=== PATIENT | female | born 1960 | race Caucasian/White ===

== ENCOUNTER 2021-01-17 14:06 | Observation (INO) | payer OTHER ==
[2021-01-17] MEDS ORDERED: ACETAMINOPHEN 325 MG TABLET (FP) PO ONE (15:09)
[2021-01-17] MEDS ORDERED: ACETAMINOPHEN 325 MG TABLET (FP) ONE (15:40)
[2021-01-17 15:57] LABS: BASO % 2.1 % (0-2.0); EOS % 3.4 % (0-4.5); HEMATOCRIT 39.3 % (32.4-45.2); HEMOGLOBIN 12.4 GM/dL (10.7-15.3); MCH 27.3 pg (25.7-33.7); MCHC 31.5 g/dl (32.0-36.0); MEAN CELL VOLUME 86.6 fl (80-96); MEAN PLT VOLUME 9.4 fl (7.5-11.1); MONO % 7.3 % (3.8-10.2); NEUT % 46.2 % (42.8-82.8); PLATELET COUNT 306 10^3/uL (134-434); RBC 4.54 M/mm3 (3.60-5.2); RDW 14.3 % (11.6-15.6); WHITE BLOOD COUNT 5.4 K/mm3 (4.0-10.0)
[2021-01-17 16:19] LABS: CHLORIDE 110 mmol/L (98-107); SODIUM 145 mmol/L (136-145)
[2021-01-17 16:21] LABS: CALCIUM 8.8 mg/dL (8.5-10.1)
[2021-01-17 16:22] LABS: ALBUMIN 3.6 g/dl (3.4-5.0); ANION GAP 11 MMOL/L (8-16); BLOOD UREA NITROGEN 11.6 mg/dL (7-18); CO2 24 mmol/L (21-32); GLUCOSE,RANDOM 84 mg/dL (74-106)
[2021-01-17 16:25] LABS: CREATININE 0.6 mg/dL (0.55-1.3); SGOT/AST 32 U/L (15-37); SGPT/ALT 27 U/L (13-61)
[2021-01-17 16:26] LABS: BILIRUBIN,TOTAL 0.4 mg/dL (0.2-1)
[2021-01-17 16:27] LABS: TOT PROT 6.8 g/dl (6.4-8.2)
[2021-01-17 16:28] LABS: ALK PHOS 84 U/L (45-117)
[2021-01-17 23:00] LABS: COCAINE, UR NEGATIVE (NEGATIVE); METHADONE, UR NEGATIVE (NEGATIVE); PHENCYCLIDINE,URINE NEGATIVE (NEGATIVE); URINE BARBITURATES NEGATIVE (NEGATIVE); URINE BENZODIAZEPINES NEGATIVE (NEGATIVE)
[2021-01-17 23:01] LABS: URINE AMPHETAMINES NEGATIVE (NEGATIVE)
[2021-01-17 23:03] LABS: URINE APPEARANCE CLEAR; URINE COLOR YELLOW
[2021-01-17 23:04] LABS: URINE BILIRUBIN NEGATIVE (NEGATIVE); URINE GLUCOSE (UA) NEGATIVE (NEGATIVE); URINE KETONE NEGATIVE (NEGATIVE); URINE LEUK ESTERASE NEGATIVE (NEGATIVE); URINE NITRITE NEGATIVE (NEGATIVE); URINE PROTEIN NEGATIVE (NEGATIVE); URINE UROBILINOGEN 0.2 mg/dL (0.2-1.0)
[2021-01-17 23:05] LABS: OPIATES, URI NEGATIVE (NEGATIVE)
[2021-01-18 00:33] VITALS: BMI 26.3
[2021-01-18] MEDS ORDERED: MELATONIN 5 MG TABLETS PO ONE (01:18)
[2021-01-18] MEDS ORDERED: ACETAMINOPHEN 1000 MG/100 ML VIAL (NON FORMULARY) IVPB ONE (01:19)
[2021-01-18 07:29] LABS: BASO % 1.1 % (0-2.0); EOS % 4.5 % (0-4.5); HEMATOCRIT 37.5 % (32.4-45.2); HEMOGLOBIN 12.1 GM/dL (10.7-15.3); MCH 27.9 pg (25.7-33.7); MCHC 32.3 g/dl (32.0-36.0); MEAN CELL VOLUME 86.1 fl (80-96); MEAN PLT VOLUME 9.2 fl (7.5-11.1); NEUT % 44.4 % (42.8-82.8); PLATELET COUNT 287 10^3/uL (134-434); RBC 4.35 M/mm3 (3.60-5.2); RDW 14.2 % (11.6-15.6); WHITE BLOOD COUNT 6.5 K/mm3 (4.0-10.0)
[2021-01-18 07:48] LABS: BLOOD UREA NITROGEN 17.5 mg/dL (7-18)
[2021-01-18 07:51] LABS: CALCIUM 9.2 mg/dL (8.5-10.1); MAGNESIUM 2.3 mg/dL (1.8-2.4)
[2021-01-18 08:22] LABS: CREATININE 0.8 mg/dL (0.55-1.3)
[2021-01-18 09:52] VITALS: BP 97/56; PULSE 68; TEMP 98.1
[2021-01-18] MEDS ORDERED: ENOXAPARIN NA (PORCINE) 40 MG/0.4 ML DISP.SYRIN SQ SCH (10:00)
== END 2021-01-18 18:09 | disposition home or self-care (01) ==
LOC: JER 14:06 → JERBED 18:19 → UNDOADMOB 18:19 → OBSVTOIN 22:04 → INTOOBSV 22:04 → J4W 23:42 → JERBED 23:42 → J4W 01-18 08:24 → JERBED 01-18 08:24
PROVIDERS: ATTEND Student in an Organized Health Care Education/Training Program
PROC: 3E033NZ Introduction of Analgesics, Hypnotics, Sedatives into Peripheral Vein, Percutaneous Approach (ICD-10-PCS; principal; 2021-01-18)
DX: R55 Syncope and collapse (principal); I95.9 Hypotension, unspecified; I65.29 Occlusion and stenosis of unspecified carotid artery; F41.9 Anxiety disorder, unspecified; Z90.49 Acquired absence of other specified parts of digestive tract; S09.90XA Unspecified injury of head, initial encounter; W18.39XA Other fall on same level, initial encounter; Y93.89 Activity, other specified; Y92.008 Other place in unspecified non-institutional (private) residence as the place of occurrence of the external cause
CPT/HCPCS: 36415; 70450-TC; 71045-TC-FY; 72125-TC; 80048; 80053; 80061; 80307; 81003; 82550; 82607; 82746; 82962; 83721; 83735; 84100; 84443; 84484; 85025; 93005; 93010; 93880-TC; 96374; 97116-GP; 97161-GP; 99285-25; C9803; G0378; J0131; U0003; U0005